=== PATIENT | male | born 1955 | race Caucasian/White ===

== ENCOUNTER 2024-10-23 01:25 | Emergency (ER) | payer MEDICARE, OTHER ==
[2024-10-23] MEDS ORDERED: Acetaminophen 500 MG TAB ONE (02:47)
[2024-10-23] MEDS ORDERED: Ketorolac Tromethamine 30 MG (1 mL) VIAL ONE (04:05)
== END 2024-10-23 04:18 | disposition home or self-care (01) ==
LOC: ERS 01:25
DX: S62.231A Other displaced fracture of base of first metacarpal bone, right hand, initial encounter for closed fracture (principal); S80.212A Abrasion, left knee, initial encounter; S80.211A Abrasion, right knee, initial encounter; S29.9XXA Unspecified injury of thorax, initial encounter; M25.531 Pain in right wrist; I10 Essential (primary) hypertension; I48.91 Unspecified atrial fibrillation; F17.210 Nicotine dependence, cigarettes, uncomplicated; W19.XXXA Unspecified fall, initial encounter; W22.8XXA Striking against or struck by other objects, initial encounter
CPT/HCPCS: 70450; 71045; 73110; 73564 ×2; J1885; Q0162; 26600; 96372